=== PATIENT | female | born 1995 | race Caucasian/White ===

== ENCOUNTER 2017-01-30 16:06 | Inpatient (IN) | payer OTHER ==
[2017-01-30 16:54] LABS: URINE APPEARANCE CLEAR; URINE BILIRUBIN NEGATIVE (NEGATIVE); URINE BLOOD NEGATIVE (NEGATIVE); URINE COLOR YELLOW; URINE GLUCOSE (UA) NEGATIVE (NEGATIVE); URINE KETONE 1+ (NEGATIVE); URINE LEUK ESTERASE NEGATIVE (NEGATIVE); URINE NITRITE NEGATIVE (NEGATIVE); URINE PROTEIN NEGATIVE (NEGATIVE); URINE UROBILINOGEN NEGATIVE mg/dL (0.2-1.0)
[2017-01-30] MEDS ORDERED: SODIUM CHLORIDE 1,000 ML IV STA (17:00)
[2017-01-30] MEDS ORDERED: morphine CARPU-JECT 4 MG/1 ML DISP.SYRIN IVPUSH ONE (17:00)
--- NOTE | 2017-01-30 17:04 | PDOC ---
History of Present Illness - General History Source: Patient, Parent(s) Exam Limitations: No Limitations - History of Present Illness Initial Comments: 01/30/17 17:54 CC: 2 day h/o Abdominal Pain + 1 day h/o Fever Patient is a 21 y.o. female with no self-reported medical history who presents to our ED today c/o a 2 day h/o diffuse, lower quadrant, non-qualifiable ( patient affirms pain is sharp, stabbing) 10/10 abdominal pain. Patient notes an associated watery diarrhea and watery/bloody vaginal discharge. Patient states the pain came on acutely while she was sitting at work, and was initially 5/10 and has increased in severity over the past 48 hours. Patient also notes a 1 day history of fever for which she took Motrin with some relief. Patient denies any vomiting, chest pain, shortness of breath, recent travel or medication changes. PMD: Dr. Ratliff Social: (-) cigarettes, (+) alcohol 3-4 drinks weekly, (-) marijuana/cocaine/ heroin; patient was most recently sexually active 2 months previous and has not been tested for STI's since that time; LMP: 4 weeks previous NKDA <Elise Constantino - Last Filed: 01/30/17 19:10> <Howie Montes - Last Filed: 01/30/17 21:33> - General Chief Complaint: Pain Stated Complaint: FEVER/NAUSEA/ABD PAIN Time Seen by Provider: 01/30/17 16:27 Past History - Past Medical History Cancer: (rt lumpectomy) - Psycho/Social/Smoking Cessation Hx Suicidal Ideation: No Smoking History: Never smoked Information on smoking cessation initiated: No Hx Alcohol Use: No Drug/Substance Use Hx: No Substance Use Type: None <Elise Constantino - Last Filed: 01/30/17 19:10> <Howie Montes - Last Filed: 01/30/17 21:33> - Past Medical History Allergies/Adverse Reactions: Allergies Allergy/AdvReac Type Severity Reaction Status Date / Time No Known Allergies Allergy Verified 01/30/17 16:11 Home Medications: Ambulatory Orders Fluoxetine HCl [Prozac] 40 mg PO DAILY 01/30/17 Non-Formulary 0 mg PO ASDIR 01/30/17 Review of Systems - Review of Systems Constitutional: Yes: Fever, Loss of Appetite HEENTM: No: Blurred Vision, Double Vision Respiratory: No: Cough, Shortness of Breath Cardiac (ROS): No: Chest Pain, Edema, Lightheadedness, Palpitations ABD/GI: Yes: Diarrhea, Nausea, Poor Appetite : No: Burning, Dysuria Psychiatric: No: Anxiety, Depression All Other Systems: Reviewed and Negative <Elise Constantino - Last Filed: 01/30/17 19:10> *Physical Exam - Vital Signs Last Vital Signs Temp Pulse Resp BP Pulse Ox 102.3 F H 101 H 19 144/77 98 01/30/17 16:09 01/30/17 16:09 01/30/17 16:09 01/30/17 16:09 01/30/17 16:09 - Physical Exam General Appearance: Yes: Nourished, Appropriately Dressed HEENT: positive: EOMI, CONCHITA Neck: positive: Trachea midline, Supple Respiratory/Chest: positive: Lungs Clear, Normal Breath Sounds Cardiovascular: positive: S1, S2, Tachycardia Female Pelvic Exam: positive: cervical os closed, discharge, other (significant cervical motion tenderness; whitish discharge, no strawberry cervix, no active bleed) Gastrointestinal/Abdominal: positive: Tender, Increased Bowel Sounds, Tenderness , Other ((+) peritoneal signs; diffuse TTP with significant tenderness in periumbilical area) Musculoskeletal: positive: Normal Inspection. negative: CVA Tenderness Extremity: positive: Delayed Capillary Refill Integumentary: positive: Normal Color, Dry, Warm Neurologic: positive: senior writer II-XII NML intact, Fully Oriented, Alert <DougieElise - Last Filed: 01/30/17 19:10> - Vital Signs Last Vital Signs Temp Pulse Resp BP Pulse Ox 100.4 F H 101 H 19 144/77 98 01/30/17 20:28 01/30/17 16:09 01/30/17 16:09 01/30/17 16:09 01/30/17 16:09 <Howie Montes - Last Filed: 01/30/17 21:33> ED Treatment Course - LABORATORY CBC & Chemistry Diagram: 01/30/17 17:00 01/30/17 17:00 - ADDITIONAL ORDERS Additional order review: Laboratory Results 01/30/17 16:33 Urine Color Yellow Urine Appearance Clear Urine pH 6.0 Urine Protein Negative Urine Glucose (UA) Negative Urine Ketones 1+ H Urine Blood Negative Urine Nitrite Negative Urine Bilirubin Negative Urine Urobilinogen Negative Ur Leukocyte Esterase Negative Urine HCG, Qual Negative - RADIOLOGY Radiology Studies Ordered: Category Date Time Status ABDOMEN & PELVIS CT WITH CONTR [CT] Stat CT Scan 01/30/17 16:53 Ordered <Elise Constantino - Last Filed: 01/30/17 19:10> - LABORATORY CBC & Chemistry Diagram: 01/30/17 17:00 01/30/17 17:00 - ADDITIONAL ORDERS Additional order review: Laboratory Results 01/30/17 01/30/17 01/30/17 17:00 17:00 16:33 Sodium 135 L Potassium 3.8 Chloride 99 Carbon Dioxide 24 Anion Gap 12 BUN 9 Creatinine 0.8 Creat Clearance w eGFR > 60 Random Glucose 93 Calcium 9.2 Total Bilirubin 0.5 AST 23 ALT 20 Alkaline Phosphatase 89 Total Protein 7.7 Albumin 3.9 Lipase 189 Urine Color Yellow Urine Appearance Clear Urine pH 6.0 Ur Specific Rousseau 1.015 Urine Protein Negative Urine Glucose (UA) Negative Urine Ketones 1+ H Urine Blood Negative Urine Nitrite Negative Urine Bilirubin Negative Urine Urobilinogen Negative Ur Leukocyte Esterase Negative Urine HCG, Qual Negative 01/30/17 17:00 RBC 4.70 MCV 80.9 MCHC 34.3 RDW 13.9 MPV 7.7 Neutrophils % 82.4 Lymphocytes % 10.0 Monocytes % 7.4 Eosinophils % 0.0 Basophils % 0.2 - Medications Given in the ED: ED Medications Discontinued Medications Generic Name Dose Route Start Last Admin Trade Name Freq PRN Reason Stop Dose Admin Sodium Chloride 1,000 mls @ 1,000 mls/hr 01/30/17 17:00 01/30/17 17:20 Normal Saline - IV 01/30/17 17:59 1,000 mls/hr ASDIR STA Administration Morphine Sulfate 4 mg 01/30/17 17:00 01/30/17 17:20 Morphine Injection - IVPUSH 01/30/17 17:01 4 mg ONCE ONE Administration Morphine Sulfate 2 mg 01/30/17 19:39 01/30/17 20:05 Morphine Injection - IVPUSH 01/30/17 19:40 2 mg ONCE ONE Administration <Howie Montes - Last Filed: 01/30/17 21:33> Medical Decision Making - Medical Decision Making 01/30/17 17:04 Patient is a 21 y.o. female with no reported PMH who presents to our facility today c/o 2 day h/o of abdominal pain and 1 day h/o fever. On PE patient is febrile (102.3 degrees Fahrenheit), slightly tachycardic (101) and shows significant tenderness to palpation of all 4 abdominal quadrants as well as significant cervical motion tenderness on pelvic exam. Initial differential diagnosis includes PID vs. Acute Appendicitis vs. Pancreatitis vs.Viral Gastroenteritis. PLAN: 1. CT Abdomen w/ PO & IV Contrast 2. Pelvic Exam 3. Transvaginal U/S 4. Lipase, CMP, CBC 5. UA, Urine , G/C/T 01/30/17 18:48 Urine (-), UA shows 1+ Ketones, Imaging, Transvaginal U/S pending. Patient signed out to Dr. Montes. <Elise Constantino - Last Filed: 01/30/17 19:10> *DC/Admit/Observation/Transfer <Elise Constantino - Last Filed: 01/30/17 19:10> - Discharge Dispostion Admit: Yes <Howie Montes - Last Filed: 01/30/17 21:33> Diagnosis at time of Disposition: Colitis Fever Qualifiers: Fever type: unspecified Qualified Code(s): R50.9 - Fever, unspecified - Discharge Dispostion Condition at time of disposition: Fair - Referrals Referrals: Peri Ratliff MD [Primary Care Provider] -
[2017-01-30 17:14] LABS: BASOPHIL 0.2 % (0-2.0); MCH 27.7 pg (25.7-33.7); MCHC 34.3 g/dl (32.0-36.0); MEAN CELL VOLUME 80.9 fl (80-96); MEAN PLT VOLUME 7.7 fl (7.5-11.1); NEUTROPHILS 82.4 % (42.8-82.8); PLATELET COUNT 197 K/MM3 (134-434); RDW 13.9 % (11.6-15.6); WHITE BLOOD COUNT 6.1 K/mm3 (4.0-10.0)
[2017-01-30] MEDS ORDERED: morphine CARPU-JECT 4 MG/1 ML DISP.SYRIN ONE (17:28)
[2017-01-30 17:35] LABS: ALBUMIN 3.9 g/dl (3.4-5.0); ANION GAP 12 (8-16); BILIRUBIN,TOTAL 0.5 mg/dL (0.2-1.0); CALCIUM 9.2 mg/dL (8.5-10.1); CO2 24 mmol/L (21-32); CREATININE 0.8 mg/dL (0.55-1.02); GLUCOSE,RANDOM 93 mg/dL (74-106); SGOT/AST 23 U/L (15-37); SGPT/ALT 20 U/L (12-78); TOT PROT 7.7 g/dl (6.4-8.2)
[2017-01-30 17:36] LABS: ALK PHOS 89 U/L (45-117)
--- NOTE | 2017-01-30 19:35 | PDOC ---
Attending Attestation - Resident Resident Name: Elise Constantino - HPI HPI: 01/30/17 19:33 21-year-old female presents to the ER with diffuse lower abdominal pain and fever, associated with nausea, nonbloody nonbilious vomiting and the minimal loose watery stools. - Physicial Exam PE: 01/30/17 19:34 Patient is awake and alert, pale appearing, mildly tachycardic and febrile. There is no scleral icterus; lungs are clear to auscultation; serial abdominal exams reveal focal tenderness diffusely most pronounced in left lower quadrant and periumbilically; there is no guarding or rebound. There is no CVA tenderness bilaterally. - Medical Decision Making 01/30/17 19:34 Patient is a 21-year-old female who presents with fever, nausea, vomiting and diffuse abdominal pain. Differential diagnoses includes acute gastritis versus acute appendicitis versus colitis versus PID. Will obtain transvaginal ultrasound and CT that and pelvis with by mouth and IV contrast. We'll obtain CBC/CMP/UA/ECG. Will hydrate and administer pain meds. Will reassess. 01/30/17 21:[address] demonstrates pancolitis. I suspect IBD. We'll obtain stool culture. We'll outboard system operator Levaquin and Flagyl IV. Case discussed with Dr. mason of GI. Will admit.
[2017-01-30] MEDS ORDERED: morphine CARPU-JECT 2 MG/1 ML DISP.SYRIN IVPUSH ONE (19:39)
[2017-01-30] MEDS ORDERED: morphine CARPU-JECT 2 MG/1 ML DISP.SYRIN ONE (20:05)
[2017-01-30] MEDS ORDERED: LEVOFLOXACIN 500 MG IVPB 100 ML IVPB ONE ×3 (20:56→22:33)
[2017-01-30] MEDS ORDERED: METRONIDAZOLE 500 MG PREMIXED 100 ML IVPB ONE ×2 (20:56→21:25)
--- NOTE | 2017-01-30 22:05 | PN ---
Teaching Attending Note Name of Resident: Dileep Marino ATTENDING PHYSICIAN STATEMENT I saw and evaluated the patient. I reviewed the resident's note and discussed the case with the resident. I agree with the resident's findings and plan as documented. SUBJECTIVE: This is a 21 year old woman with no significant medical history who comes to the ER today complaining of abdominal pain. She says she developed lower abdominal cramping on 01/26. Since then, he pain has become more severe. She has had worsening watery diarrhea, nausea and fevers to 102. She denies rectal bleeding, melena, hematemesis, weight loss. She has had similar, but less severe, abdominal pain, which she attributed to IBS, for the last 4 years. She was hospitalized last year for abdominal pain at which time she had CT showing abnormalities of the GI tract. It was recommended that she have a colonoscopy but she did not go. She also complains of pain in both shoulders which she was told is bursitis, and pain in both knees. She denies back pain, rash. OBJECTIVE: Vital Signs Period Temp Pulse Resp BP Sys/Carlos Pulse Ox Last 24 Hr 100.4 F-102.3 F 101 19 144/77 98 HEART: S1S2, tachycardic LUNGS: Clear ABDOMEN: Soft, non-distended, normal BS, (+) LLQ tenderness EXTREMITIES: No edema ASSESSMENT AND PLAN: This is a 21 year old woman with no significant medical history who presents to the ER with abdominal pain, nausea, diarrhea and fever. 1. SIRS, possible sepsis, secondary to acute colitis - Infectious vs inflammatory - CT shows continuous concentric wall thickening from splenic flexure through rectum with probable transverse colon involvement, increased intraluminal colonic fluid - NPO - Stool studies - IV fluid - Levaquin, Flagyl - Zofran as needed for nausea - Morphine as needed for pain - GI consult
[2017-01-30] MEDS ORDERED: ONDANSETRON 4 MG/2 ML VIAL IVPB PRN (22:20)
[2017-01-30] MEDS ORDERED: LEVOFLOXACIN 500 MG IVPB 100 ML IVPB SCH (22:45)
[2017-01-30] MEDS: SODIUM CHLORIDE 1,000 ML IV SCH (23:30)
[2017-01-31] MEDS: SODIUM CHLORIDE 1,000 ML IV SCH ×3 (01:30→23:48)
[2017-01-31] MEDS: morphine CARPU-JECT 2 MG/1 ML DISP.SYRIN IVPUSH PRN ×3 (01:37→11:06)
[2017-01-31] MEDS: METRONIDAZOLE PREMIXED IVPB 50 ML IVPB SCH ×3 (02:28→17:42)
[2017-01-31] MEDS ORDERED: ACETAMINOPHEN 325 MG TABLET (FP) PO PRN (02:58)
--- NOTE | 2017-01-31 03:01 | HP ---
CHIEF COMPLAINT: Abdominal pain PCP: HISTORY OF PRESENT ILLNESS: The patient is a 21 yo f w/ no PMH who presents to the ED c/o abdominal pain, nausea, vomiting and diarrhea for 2 days. The patient states that she has had pain in her abdomen on and off with and without diarrhea and vomiting for the past 5 years and is now having a similar episode. The patient complains of a cramping, 7/10 pain over the whole abdomen which radiates to the epigastrium which alternates with a sharp, 10/10 abdominal pain. The pain is exacerbated by sitting up and alleviated by laying on her side. The pain is associated with NBNB emesis which occurs when she eats something or sits up in bed. She also complains of several episodes of watery diarrhea. The patient's symptoms began to be associated with fever to 102 and chills 1 day ago. The patient also complains of bilateral shoulder and knee pain which she was told is bursitis. The patient was previously hospitalized with abdominal pain and had a CT of the abdomen which showed abnormalities of the GI tract. 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 Social History: Smoking: denies Alcohol: denies Drugs: denies Family History: crohn's in cousin celiac in cousin GI problems in father Allergies No Known Allergies Allergy (Verified 01/30/17 16:11) HOME MEDICATIONS: Home Medications Medication Instructions Recorded Fluoxetine HCl [Prozac] 40 mg PO DAILY 01/30/17 Non-Formulary 0 mg PO ASDIR 01/30/17 REVIEW OF SYSTEMS CONSTITUTIONAL: Absent: fever, diaphoresis, generalized weakness, malaise, loss of appetite, weight change HEENT: Absent: rhinorrhea, nasal congestion, throat pain, throat swelling, difficulty swallowing, mouth swelling, ear pain, eye pain, visual changes CARDIOVASCULAR: Absent: chest pain, syncope, palpitations, irregular heart rate, lightheadedness , peripheral edema RESPIRATORY: Absent: cough, shortness of breath, dyspnea with exertion, orthopnea, wheezing, stridor, hemoptysis GASTROINTESTINAL: Absent: melena, hematochezia GENITOURINARY: Absent: dysuria, frequency, urgency, hesitancy, hematuria, flank pain, genital pain MUSCULOSKELETAL: Absent: myalgia, joint swelling, back pain, neck pain SKIN: Absent: rash, itching, pallor HEMATOLOGIC/IMMUNOLOGIC: Absent: easy bleeding, easy bruising, lymphadenopathy, frequent infections ENDOCRINE: Absent: unexplained weight gain, unexplained weight loss, heat intolerance, cold intolerance NEUROLOGIC: Absent: headache, focal weakness or paresthesias, dizziness, unsteady gait, seizure, mental status changes, bladder or bowel incontinence PSYCHIATRIC: Absent: anxiety, depression, suicidal or homicidal ideation, hallucinations. PHYSICAL EXAMINATION GENERAL: Awake, alert, and fully oriented, in no acute distress. HEAD: Normal with no signs of trauma. EYES: extraocular movements intact, sclera anicteric, conjunctiva clear. No lid lag. NECK: Normal range of motion, no JVD. LUNGS: Breath sounds equal, clear to auscultation bilaterally. No wheezes, and no crackles. No accessory muscle use. HEART: Regular rate and rhythm, normal S1 and S2 without murmur, rub or gallop. ABDOMEN: Soft, tender to palpation in the lower quadrants, not distended, normoactive bowel sounds, no guarding, no rebound, no masses. MUSCULOSKELETAL: Normal range of motion at all joints. No bony deformities or tenderness. No CVA tenderness. NEUROLOGICAL: Cranial nerves II-X intact. Normal speech. Gait not observed. PSYCHIATRIC: Cooperative. Good eye contact. Appropriate mood and affect. SKIN: Warm, dry, normal turgor, no rashes or lesions noted, normal capillary refill. ASSESSMENT/PLAN: 21yo f w/ no PMH comes to the ED complaining of abdominal pain, nausea, vomiting , diarrhea, fever, chills and joint pain. #Abdominal pain 2/2 Colitis 2/2 IBD vs infectious cause -levaquin and flagyl -IVF -Morphine PRN pain -am CBC, CMP, Mag, phos -tylenol prn fever -GI consult #nausea and vomiting -Zofran prn -IVF #diarrhea -monitor -IVF #FEN -NS @ 100 -monitor lytes -NPO #Prophy -SCDs -no GI prophy at this time #Dispo -admitted for supportive therapy and Problem List - Problem (1) Colitis Code(s): K52.9 - NONINFECTIVE GASTROENTERITIS AND COLITIS, UNSPECIFIED (2) Fever Code(s): R50.9 - FEVER, UNSPECIFIED Qualifiers: Fever type: unspecified Qualified Code(s): R50.9 - Fever, unspecified (3) Abdominal pain Code(s): R10.9 - UNSPECIFIED ABDOMINAL PAIN Visit type - Emergency Visit Emergency Visit: Yes ED Registration Date: 01/30/17 Care time: The patient presented to the Emergency Department on the above date and was hospitalized for further evaluation of their emergent condition. - New Patient This patient is new to me today: Yes Date on this admission: 01/31/17 - Critical Care Critical Care patient: No
[2017-01-31 03:35] VITALS: BMI 23.3
[2017-01-31 08:09] LABS: BASOPHIL 0.3 % (0-2.0); MCH 27.6 pg (25.7-33.7); MCHC 34.4 g/dl (32.0-36.0); MEAN CELL VOLUME 80.3 fl (80-96); MEAN PLT VOLUME 7.9 fl (7.5-11.1); NEUTROPHILS 73.1 % (42.8-82.8); PLATELET COUNT 167 K/MM3 (134-434); RDW 14.1 % (11.6-15.6); WHITE BLOOD COUNT 4.9 K/mm3 (4.0-10.0)
[2017-01-31 08:44] LABS: ALK PHOS 67 U/L (45-117); ANION GAP 16 (8-16); BILIRUBIN,TOTAL 0.6 mg/dL (0.2-1.0); CALCIUM 8.1 mg/dL (8.5-10.1); CO2 18 mmol/L (21-32); CREATININE 0.5 mg/dL (0.55-1.02); GLUCOSE,RANDOM 68 mg/dL (74-106); MAGNESIUM 2.1 mg/dL (1.8-2.4); PHOSPHOROUS 2.5 mg/dL (2.5-4.9); SGOT/AST 20 U/L (15-37); SGPT/ALT 16 U/L (12-78); TOT PROT 6.1 g/dl (6.4-8.2)
[2017-01-31 09:02] LABS: C-REACTIVE PROTEIN 17.1 MG/DL (0.00-0.3)
[2017-01-31] MEDS ORDERED: PT OWN MED DRAWER 7, Y5N ONE ×2 (09:39→17:39)
[2017-01-31] MEDS: FLUoxetine HCL 20 MG CAPSULE (FP) PO SCH (11:07)
[2017-01-31] MEDS: LEVOFLOXACIN 500 MG IVPB 100 ML IVPB SCH (11:07)
--- NOTE | 2017-01-31 11:29 | PN ---
Progress Note (short form) - Note Progress Note: continues to have abdominal pain, improved with pain medications. continues to have bloody BM, 3 since admission. states she had similar episode this time last year and was hospitalized in [place]. unclear what was done at that time but believes she was not given abx during that course. was instructed to follow up with a GI for colonoscopy which she never did. does report intermittent B/L shoulder and knee pain for several years. was recently on 10 day abx course for finger surgery which she completed about 2 weeks ago. states her usual BM are daily, denies CP, SOB, fever, chills, tenesmus, rashes, uveitis in the past. no recent travel, no sick contacts Current Medications Generic Name Dose Route Start Last Admin Trade Name Freq PRN Reason Stop Dose Admin Acetaminophen 650 mg 01/31/17 02:58 Tylenol - PO Q6H PRN FEVER OR PAIN Fluoxetine HCl 40 mg 01/31/17 10:00 Prozac - PO DAILY GINI Sodium Chloride 1,000 mls @ 100 mls/hr 01/30/17 22:30 01/31/17 01:30 Normal Saline - IV 100 mls/hr ASDIR GINI Administration Metronidazole 50 mls @ 50 mls/hr 01/31/17 02:00 01/31/17 09:44 Flagyl 250mg Premixed Ivpb - IVPB 50 mls/hr Q8H-IV GINI Administration Levofloxacin 100 mls @ 100 mls/hr 01/31/17 10:00 Levaquin 500 Mg Premixed Ivpb - IVPB DAILY GINI Morphine Sulfate 2 mg 01/30/17 22:20 01/31/17 06:29 Morphine Injection - IVPUSH 2 mg Q4H PRN Administration PAIN Ondansetron HCl 4 mg 01/30/17 22:20 Zofran Injection IVPB Q6H PRN NAUSEA Last Vital Signs Temp Pulse Resp BP Pulse Ox 98.5 F 83 18 116/53 99 01/31/17 09:18 01/31/17 09:18 01/31/17 09:18 01/31/17 09:18 01/31/17 01:21 General NAD, flat affect CV S1 S2 RRR no murmur/rub/gallop LUngs CTA B/L no wheezing/rales/rhonchi Abdomen soft + epigastric and LLQ tenderness with guarding no rebound no distention. normoactive BS Extremities no pedal edema no rashes. hypopigmented lesion L upper thigh CBCD WBC 4.9 K/mm3 (4.0-10.0) 01/31/17 06:00 RBC 4.20 M/mm3 (3.60-5.2) 01/31/17 06:00 Hgb 11.6 GM/dL (10.7-15.3) D 01/31/17 06:00 Hct 33.7 % (32.4-45.2) 01/31/17 06:00 MCV 80.3 fl (80-96) 01/31/17 06:00 MCHC 34.4 g/dl (32.0-36.0) 01/31/17 06:00 RDW 14.1 % (11.6-15.6) 01/31/17 06:00 Plt Count 167 K/MM3 (134-434) 01/31/17 06:00 MPV 7.9 fl (7.5-11.1) 01/31/17 06:00 CMP Sodium 137 mmol/L (136-145) 01/31/17 06:00 Potassium 3.4 mmol/L (3.5-5.1) L 01/31/17 06:00 Chloride 103 mmol/L (98-107) 01/31/17 06:00 Carbon Dioxide 18 mmol/L (21-32) L D 01/31/17 06:00 Anion Gap 16 (8-16) 01/31/17 06:00 BUN 6 mg/dL (7-18) L D 01/31/17 06:00 Creatinine 0.5 mg/dL (0.55-1.02) L D 01/31/17 06:00 Creat Clearance w eGFR > 60 (>60) 01/31/17 06:00 Random Glucose 68 mg/dL (74-106) L D 01/31/17 06:00 Calcium 8.1 mg/dL (8.5-10.1) L 01/31/17 06:00 Total Bilirubin 0.6 mg/dL (0.2-1.0) 01/31/17 06:00 AST 20 U/L (15-37) 01/31/17 06:00 ALT 16 U/L (12-78) 01/31/17 06:00 Alkaline Phosphatase 67 U/L (45-117) D 01/31/17 06:00 Total Protein 6.1 g/dl (6.4-8.2) L D 01/31/17 06:00 Albumin 3.0 g/dl (3.4-5.0) L D 01/31/17 06:00 A/p 21 yo F with no PMHx presented to the hospital with abdominal pain, fevers and bloody diarrhea 1. Sepsis due to pancolitis- Tm 102.3. tachycardia resolved. clinically continues to have abdominal pain and self-reported bloody BM. concern for IBD ( presenting symptoms with zavala-colitis with arthalgias and significant family Hx although duration is short) although can not r/o infectious etiology. cont NPO at this time. IVF, Levaquin and Flagyl day 2. ESR/CRP pending. Stool and BCx pending. GI consulted. will defer to GI about empirically starting steroids and 5-ASA. pain and nausea control. 2. Hypokalemia- KCl 10meq x2 3. DVT ppx- will start lovenox 4. spoke with mother and sister both present at bedside. plan discussed at great length. verbalized understanding and agreement with plan Visit type - Emergency Visit Emergency Visit: Yes ED Registration Date: 01/30/17 Care time: The patient presented to the Emergency Department on the above date and was hospitalized for further evaluation of their emergent condition. - New Patient This patient is new to me today: Yes Date on this admission: 01/31/17 - Critical Care Critical Care patient: No - Discharge Referral Referred to [facility] No
[2017-01-31] MEDS: KCL 10 MEQ IVPB 100 ML IVPB SCH ×2 (11:53→13:19)
[2017-01-31] MEDS ORDERED: ACETAMINOPHEN 1000 MG/100 ML VIAL (NON FORMULARY) IVPB ONE (13:15)
[2017-01-31] MEDS ORDERED: oxyCODONE HCL 5 MG TABLET PO PRN (15:40)
[2017-01-31] MEDS ORDERED: ACETAMINOPHEN 1000 MG/100 ML VIAL (NON FORMULARY) IVPB PRN (15:47)
--- NOTE | 2017-01-31 17:18 | CON.GI ---
Consult Consult Specialty:: GASTROENTEROLOGY FOR ROBBIN - History of Present Illness Chief Complaint: FEVER AND DIARRHEA History of Present Illness: 21 YEAR OLD FEMALE WITH EPISODES OF LOOSE STOOL WITH SOME BLEEDING (SCANT AND PINK) THAT STARTED ON THURSDAY AND STEADILY PROGRESSED AND ASSOCIATED WITH SYMPTOMS OF ABDOMINAL CRAMPING AND SOME TENESMUS. SHE HAD DOCUMENTED FEVER TO 102. SHE HAD ASSOCIATED ANOREXIA AND MALAISE. SHE HAD A SIMILAR EPISODE OF THIS A COUPLE OF MONTHS AGO IN [place]. HER STOOLS GREW OUT A HEAVY COLONY COUNT OF CAMPHYLOBACTER. SHE WAS NEVER TREATED WITH ANTIBIOTIC SHE WAS CALLED BY THE HOSPITAL WHILE SHE WAS HOME AND HER SYMPTOMS RESOLVED. SHE WAS TOLD TO SEE A FLOOR BROKER BUT SHE NEVER DID SHE WAS FEELING BETTER. OF NOTE SHE HAS SOME INTERMITTENT BILATERAL SHOULDER PAIN THAT WAS DIAGNOSED BURSITIS. SHE HAS HAD MILD BILATERAL KNEE PAIN. SHE WAS ON A COURSE OF ANTIBIOTICS IN NOVEMBER FOR A FINGER INFECTION AFTER REMOVAL OF AN AVM FROM HER RIGHT HAND. SHE HAS NEVER HAD UVEITIS IT STATES IN THE CHART. SHE DENIES RECENT TRAVEL, SICK CONTACTS OR EATING UNCOOKED OR "STREET' FOOD. HER COUSIN HAS CROHN'S DISEASE , HER MOTHER HAS POLYPS AND OTHER RELATIVES HAVE HAD MULTIPLE MYELOMA, PANCREATIC CANCER, AND PROSTATE CANCER. 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: Alzheimer's, CVA, Dementia, Migraine, Multiple Sclerosis, Peripheral Neuropathy, Parkinson's, Seizure, Syncope, TIA, Vertigo, Other Cardio/Vascular: No: AFIB, Aneurysm, Aortic Insufficiency, Aortic Stenosis, CAD , CHF, Deep Vein Thrombosis, HTN, Hyperlipdemia, OK, Mitral Insufficiency, Mitral Stenosis, Murmur, Pulmonary Hypertension, Other Pulmonary: No: Asthma, Bronchitis, Cancer, COPD, O2 Dependent, Pneumonia, Previously Intubated, Pulmonary Embolus, Pulmonary Fibrosis, Sleep Apnea, Other Gastrointestinal: Yes: Other ( ABOVE) Hepatobiliary: No: Cirrhosis, Cholelithiasis, Cholecystitis, Choledocholithiasis , Hepatitis A, Hepatitis B, Hepatitis C, Other Renal/: No: Renal Failure, Renal Inusuff, BPH, Cancer, Hematuria, Hemodialysis , Neurogenic Bladder, Renal Calculi, UTI, Other Reproductive: No: Ectopic , Endometriosis, Fibroids, PID, Polycystic Ovary Syndrome, Postmenopausal, Other ...: No Infectious Disease: Yes: Other ( ABOVE) Musculoskeletal: Yes: Bursitis, Other ( ABOVE, AVM RIGHT HAND) ENT: No: Allergic Rhinitis, Sinusitis, Other Endocrine: No: [place]'s Disease, Ioana's Disease, Diabetes Insipidus, Diabetes Mellitus, Hyperparathyroidism, Hyperthyroidism, Hypothyroidism, Osteopenia, SIADH, Other - Past Surgical History Additional Surgical History: LUPECTOMY FOR BENIGN BREAST LESION - Alcohol/Substance Use Hx Alcohol Use: No - Smoking History Smoking history: Never smoked Home Medications - Allergies Allergies/Adverse Reactions: Allergies Allergy/AdvReac Type Severity Reaction Status Date / Time No Known Allergies Allergy Verified 01/30/17 16:11 - Home Medications Home Medications: Ambulatory Orders Fluoxetine HCl [Prozac] 40 mg PO DAILY 01/30/17 Non-Formulary 0 mg PO ASDIR 01/30/17 Family Disease History - Family Disease History Family History: Unremarkable ( HPI) Review of Systems - Review of Systems Constitutional: reports: Chills, Fever, Loss of Appetite, Weakness Eyes: reports: No Symptoms HENT: reports: No Symptoms Neck: reports: No Symptoms Cardiovascular: reports: No Symptoms Respiratory: reports: No Symptoms Gastrointestinal: reports: Abdominal Pain, Diarrhea, Rectal Bleeding Genitourinary: denies: No Symptoms, Burning, Discharge, Dysuria, Flank Pain, Frequency, Hematuria, Incontinence, Lesions, Menses, Pain, Testicular Mass, Testicular Pain, Testicular Swelling, Urgency, Vaginal Bleeding, Other Breasts: denies: No Symptoms Reported, See HPI, Breast Implants, Discharge from Nipple, Lumps, Pain, Skin Changes, Other Musculoskeletal: denies: No Symptoms, Back Pain, Crepitus, Decreased ROM, Extremity Pain, Joint Pain, Joint Swelling, Muscle Pain, Muscle Cramps, Muscle Weakness, Other Integumentary: denies: No Symptoms, Blister, Bruising, Change in Color, Eczema, Erythema, Incision, Lesions, Lump, Pallor, Pruritis, Rash, Wound, Other Neurological: denies: No Symptoms, Change in LOC, Change in Speech, Confusion, Dizziness, Headache, Incoordination, Numbness, Parasthesia, Pre-Existing Deficit , Seizure, Syncope, Tremors, Unsteady Gait, Weakness, Other Endocrine: denies: No Symptoms, Excessive Sweating, Flushing, Increased Hunger, Increased Thirst, Intolerance to Cold, Intolerance to Heat, Unexplained Weight Gain, Unexplained Weight Loss, Other Hematology/Lymphatic: denies: No Symptoms, Easily Bruised, Excessive Bleeding, Swollen Glands, Other Physical Exam-GI Vital Signs: Vital Signs Temperature 98.3 F 01/31/17 14:59 Pulse Rate 76 01/31/17 14:59 Respiratory Rate 18 01/31/17 14:59 Blood Pressure 109/65 01/31/17 14:59 O2 Sat by Pulse Oximetry (%) 100 01/31/17 09:00 Constitutional: Yes: Well Nourished, No Distress Eyes: Yes: Conjunctiva Clear HENT: Yes: Atraumatic Neck: Yes: Supple Cardiovascular: Yes: Regular Rate and Rhythm Respiratory: Yes: Regular Gastrointestinal Inspection: Yes: WNL ...Auscultate: Yes: Normoactive Bowel Sounds ...Palpate: Yes: Soft, Other (NONTENDER) Extremities: Yes: WNL Labs: CBC, BMP 01/31/17 06:00 01/31/17 06:00 Imaging - Results Cat Scan: Image Reviewed (COLITIS IN THE LEFT COLON AND SIGMOID, MILDY DILATED SIGMOID) Problem List - Problems (1) Bloody diarrhea Assessment/Plan: ALL CULTURES WERE SENT INCLUDING C DIFFICLE AND ALL RESULTS ARE STILL PENDING. THE QUESTION IS ONE OF INFECTION VS IBD. WILL WAIT FOR CULTURES . ADVANCE DIET TO CLEARS, STOP MORPHINE AND START BENTYL PRN, ADD IV ACETAMINOPHEN AND USE OXYCODONE PRN. IF CULTURES ARE POSITIVE FOR BACTERIA CONTINUE BAX AND IF SHE IMPROVES OUTPATIENT FOLLOW UP. IF CULTURES NEGATIVE CONSIDER COLONOSCOPY OR FLEX SIGMOIDOSCOPY ON THURSDAY TREND CBC, CMP, CRP. Code(s): R19.7 - DIARRHEA, UNSPECIFIED (2) Colitis Code(s): K52.9 - NONINFECTIVE GASTROENTERITIS AND COLITIS, UNSPECIFIED (3) Fever Code(s): R50.9 - FEVER, UNSPECIFIED Qualifiers: Fever type: unspecified Qualified Code(s): R50.9 - Fever, unspecified (4) Abdominal pain Code(s): R10.9 - UNSPECIFIED ABDOMINAL PAIN
[2017-01-31] MEDS: DICYCLOMINE HCL 10 MG CAPSULE PO PRN (17:42)
[2017-02-01] MEDS: DICYCLOMINE HCL 10 MG CAPSULE PO PRN ×2 (00:43→12:45)
[2017-02-01] MEDS: METRONIDAZOLE PREMIXED IVPB 50 ML IVPB SCH ×3 (02:31→17:37)
[2017-02-01 07:15] LABS: BASOPHIL 0.3 % (0-2.0); EOSINOPHIL 0.2 % (0-4.5); MCH 27.6 pg (25.7-33.7); MEAN CELL VOLUME 81.1 fl (80-96); MEAN PLT VOLUME 7.5 fl (7.5-11.1); NEUTROPHILS 70.3 % (42.8-82.8); PLATELET COUNT 174 K/MM3 (134-434); RDW 14.2 % (11.6-15.6); WHITE BLOOD COUNT 5.7 K/mm3 (4.0-10.0)
[2017-02-01 07:43] LABS: ALBUMIN 2.8 g/dl (3.4-5.0); ANION GAP 14 (8-16); CALCIUM 8.1 mg/dL (8.5-10.1); CO2 16 mmol/L (21-32); CREATININE 0.5 mg/dL (0.55-1.02); GLUCOSE,RANDOM 58 mg/dL (74-106); MAGNESIUM 1.9 mg/dL (1.8-2.4); PHOSPHOROUS 1.8 mg/dL (2.5-4.9); SGOT/AST 20 U/L (15-37); SGPT/ALT 16 U/L (12-78)
[2017-02-01 07:45] LABS: ALK PHOS 66 U/L (45-117); BILIRUBIN,TOTAL 0.5 mg/dL (0.2-1.0); TOT PROT 5.8 g/dl (6.4-8.2)
[2017-02-01] MEDS ORDERED: PT OWN MED DRAWER 7, Y5N ONE ×3 (10:01→16:56)
[2017-02-01] MEDS: LEVOFLOXACIN 500 MG IVPB 100 ML IVPB SCH (10:08)
[2017-02-01] MEDS: FLUoxetine HCL 20 MG CAPSULE (FP) PO SCH (10:08)
--- NOTE | 2017-02-01 12:02 | PN ---
Progress Note (short form) - Note Progress Note: states pain has improved. tolerating liquid diet. no BM since yesterday. denies CP, SOB, fever, chills, tenesmus, rashes, uveitis in the past. no recent travel , no sick contacts Current Medications Generic Name Dose Route Start Last Admin Trade Name Freq PRN Reason Stop Dose Admin Dicyclomine HCl 10 mg 01/31/17 15:39 02/01/17 00:43 Bentyl - PO 10 mg Q8H PRN Administration MUSCLE SPASMS Fluoxetine HCl 40 mg 01/31/17 10:00 02/01/17 10:08 Prozac - PO 40 mg DAILY GINI Administration Sodium Chloride 1,000 mls @ 100 mls/hr 01/30/17 22:30 01/31/17 23:48 Normal Saline - IV Not Given ASDIR GINI Metronidazole 50 mls @ 50 mls/hr 01/31/17 02:00 02/01/17 11:25 Flagyl 250mg Premixed Ivpb - IVPB 50 mls/hr Q8H-IV GINI Administration Levofloxacin 100 mls @ 100 mls/hr 01/31/17 10:00 02/01/17 10:08 Levaquin 500 Mg Premixed Ivpb - IVPB 100 mls/hr DAILY GINI Administration Ondansetron HCl 4 mg 01/30/17 22:20 Zofran Injection IVPB Q6H PRN NAUSEA Oxycodone HCl 5 mg 01/31/17 15:40 Roxicodone - PO Q6H PRN PAIN Last Vital Signs Temp Pulse Resp BP Pulse Ox 98.3 F 79 20 103/52 98 02/01/17 10:00 02/01/17 10:00 02/01/17 10:00 02/01/17 10:00 02/01/17 09:00 General NAD, CV S1 S2 RRR no murmur/rub/gallop LUngs CTA B/L no wheezing/rales/rhonchi Abdomen soft + epigastric and LLQ tenderness with guarding no rebound no distention. hypoactive BS Extremities no pedal edema no rashes. CBCD WBC 5.7 K/mm3 (4.0-10.0) 02/01/17 06:15 RBC 3.95 M/mm3 (3.60-5.2) 02/01/17 06:15 Hgb 10.9 GM/dL (10.7-15.3) 02/01/17 06:15 Hct 32.0 % (32.4-45.2) L 02/01/17 06:15 MCV 81.1 fl (80-96) 02/01/17 06:15 MCHC 34.0 g/dl (32.0-36.0) 02/01/17 06:15 RDW 14.2 % (11.6-15.6) 02/01/17 06:15 Plt Count 174 K/MM3 (134-434) 02/01/17 06:15 MPV 7.5 fl (7.5-11.1) 02/01/17 06:15 CMP Sodium 138 mmol/L (136-145) 02/01/17 06:15 Potassium 3.7 mmol/L (3.5-5.1) 02/01/17 06:15 Chloride 108 mmol/L (98-107) H 02/01/17 06:15 Carbon Dioxide 16 mmol/L (21-32) L 02/01/17 06:15 Anion Gap 14 (8-16) 02/01/17 06:15 BUN 6 mg/dL (7-18) L 02/01/17 06:15 Creatinine 0.5 mg/dL (0.55-1.02) L 02/01/17 06:15 Creat Clearance w eGFR > 60 (>60) 02/01/17 06:15 Calcium 8.1 mg/dL (8.5-10.1) L 02/01/17 06:15 Total Bilirubin 0.5 mg/dL (0.2-1.0) 02/01/17 06:15 AST 20 U/L (15-37) 02/01/17 06:15 ALT 16 U/L (12-78) 02/01/17 06:15 Alkaline Phosphatase 66 U/L (45-117) 02/01/17 06:15 Total Protein 5.8 g/dl (6.4-8.2) L 02/01/17 06:15 Albumin 2.8 g/dl (3.4-5.0) L 02/01/17 06:15 Microbiology 01/31/17 00:37 Colon Fluid Gram Stain - Final 01/31/17 00:37 Colon Fluid Salmonella/Shigella Culture - Preliminary Pending Organism 01/31/17 00:37 Colon Fluid Yersinia Culture - Preliminary NO ENTERIC PATHOGENS, 24 HOURS, ON PRIMARY PLATES 01/31/17 00:37 Colon Fluid Vibrio Culture - Preliminary NO ENTERIC PATHOGENS, 24 HOURS, ON PRIMARY PLATES 01/31/17 00:37 Colon Fluid Escherichia coli 0157 Culture - Preliminary NO ENTERIC PATHOGENS, 24 HOURS, ON PRIMARY PLATES 01/30/17 16:33 Urine - Urine Clean Catch Urine Culture - Final NO GROWTH OBTAINED 01/31/17 00:37 Stool Clostridium difficile Antigen (GABE) - Final 01/31/17 00:37 Stool Clostridium difficile Toxin Assay - Final A/p 21 yo F with no PMHx presented to the hospital with abdominal pain, fevers and bloody diarrhea 1. Sepsis due to pancolitis- afebrile 24H. clinical improvement. stool Cx with pending organism. Report from previous hospitalization showing same zavala-colitis with campylobacter which was never treated. presumed to be similar infection. considering it is with how improved pt is with only 48H of abx. will ultimately require colonoscopy but can be deferred if infectious. d/c IVF. cont Levaquin and Flagyl day 3. ESR/CRP slightly elevated can be infectious as well. GI consulted. pain and nausea control. 2. Hypokalemia- resolved 3. Acute normocytic anemia- ted ceballosal. has not started menses yet. no reports of bleeding. trend Hgb. check iron studies 4. DVT ppx- lovenox 5. spoke to pt with father present at bedside. explained current plan. pt verbalized desire to go home and follow up as outpatient. encouraged pt to stay in the hospital due to undetermined results of Cx and lack of follow up previous visit. informed her of risks/benefits of staying. will need to be AMA if she decides to leave. currently agrees to stay. Visit type - Emergency Visit Emergency Visit: Yes ED Registration Date: 01/30/17 Care time: The patient presented to the Emergency Department on the above date and was hospitalized for further evaluation of their emergent condition. - New Patient This patient is new to me today: No - Critical Care Critical Care patient: No - Discharge Referral Referred to [facility] Med P.C.: No
[2017-02-01] MEDS ORDERED: NAPH,MB-DB/K PH,MBDB POWDER PACKET PO ONE (13:00)
--- NOTE | 2017-02-01 15:07 | PN ---
GI Progress Note Subjective: GASTROENTEROLOGY ONE LOOSE BM TODAY, STATES NO ABDOMINAL PAIN, WANTS TO GO HOME, MICRO + FOR ORGANISM IN STOOL CULTURE ID IS PENDING NO FEVER - Objective Vital Signs: Vital Signs Temperature 98.3 F 02/01/17 10:00 Pulse Rate 79 02/01/17 10:00 Respiratory Rate 20 02/01/17 10:00 Blood Pressure 103/52 02/01/17 10:00 O2 Sat by Pulse Oximetry (%) 98 02/01/17 09:00 Constitutional: Well Nourished Eyes: Yes: Conjunctiva Clear HENT: Yes: Atraumatic Neck: Yes: Supple Cardiovascular: Yes: Regular Rate and Rhythm Respiratory: Yes: Regular Gastrointestinal Inspection: Yes: WNL ...Auscultate: Yes: Normoactive Bowel Sounds ...Palpate: Yes: Soft Extremities: Yes: WNL Neurological: Yes: WNL Labs: CBC, BMP 02/01/17 06:15 02/01/17 06:15 Problem List - Problems (1) Bloody diarrhea Assessment/Plan: CONTINUE CURRENT RX BUT ADVANCE TO BRAT DIET AND LOW RESIDUAL DIET IN AM CAN NOT AGREE WITH PATIENT'S REQUEST TO GO HOME: AWAIT STOOL ID OF ORGANISM D/C OXYCODONE D/C IV ACETAMINOPHEN CONTINUE BENTYL DEB LEON MD Code(s): R19.7 - DIARRHEA, UNSPECIFIED (2) Colitis Code(s): K52.9 - NONINFECTIVE GASTROENTERITIS AND COLITIS, UNSPECIFIED (3) Fever Code(s): R50.9 - FEVER, UNSPECIFIED Qualifiers: Fever type: unspecified Qualified Code(s): R50.9 - Fever, unspecified (4) Abdominal pain Code(s): R10.9 - UNSPECIFIED ABDOMINAL PAIN
[2017-02-01] MEDS ORDERED: ACETAMINOPHEN 325 MG TABLET (FP) PO ONE (20:39)
[2017-02-02] MEDS: METRONIDAZOLE PREMIXED IVPB 50 ML IVPB SCH ×2 (01:45→10:09)
[2017-02-02 09:31] LABS: MCH 27.5 pg (25.7-33.7); MCHC 34.6 g/dl (32.0-36.0); MEAN CELL VOLUME 79.4 fl (80-96); MEAN PLT VOLUME 7.4 fl (7.5-11.1); PLATELET COUNT 246 K/MM3 (134-434); RDW 13.7 % (11.6-15.6); WHITE BLOOD COUNT 6.9 K/mm3 (4.0-10.0)
[2017-02-02 09:59] LABS: ANION GAP 13 (8-16); CALCIUM 8.9 mg/dL (8.5-10.1); CO2 20 mmol/L (21-32); CREATININE 0.5 mg/dL (0.55-1.02); GLUCOSE,RANDOM 72 mg/dL (74-106); PHOSPHOROUS 2.3 mg/dL (2.5-4.9)
[2017-02-02] MEDS: FLUoxetine HCL 20 MG CAPSULE (FP) PO SCH (10:09)
[2017-02-02] MEDS: LEVOFLOXACIN 500 MG IVPB 100 ML IVPB SCH (11:02)
--- NOTE | 2017-02-02 14:43 | PN ---
Teaching Attending Note Name of Resident: Dileep Marino ATTENDING PHYSICIAN STATEMENT I saw and evaluated the patient. I reviewed the resident's note and discussed the case with the resident. I agree with the resident's findings and plan as documented. SUBJECTIVE:asymptomatic. states she no longer has cramping. tolerated breakfast. had 1 loose BM yesterday that was non-bloody. denies CP, SOB, fever, chiills, N/V/C OBJECTIVE: Last Vital Signs Temp Pulse Resp BP Pulse Ox 99.4 F 74 18 102/55 98 02/02/17 08:45 02/02/17 08:45 02/02/17 08:45 02/02/17 08:45 02/01/17 09:00 General NAD Abdomen soft NT/ND no rebound or guarding ASSESSMENT AND PLAN: 21 yo F with no PMHx presented to the hospital with abdominal pain, fevers and bloody diarrhea 1. Sepsis due to pancolitis- afebrile >72H. clinical improvement. stool Cx + salmonella. negative for campylobacter. symptoms resolved. low residue diet. will ultimately require colonoscopy in several weeks to r/o other causes. cont levaquin 7 day course. 2. Hypokalemia- resolved 3. Acute normocytic anemia- likley dilutional. Hgb stable. 4. DVT ppx- lovenox 5. spoke to pt with father present at bedside. verbalized understanding and agreement with plan. stressed importance of medication compliance and follow up.
[2017-02-02 14:54] VITALS: BP 118/64; PULSE 102; TEMP 98.6
--- NOTE | 2017-02-02 22:27 | DS ---
Physical Exam: SUBJECTIVE: Patient seen and examined at bedside. She feels better today and is eager to go home. No vomiting overnight. She had one episode of diarrhea this morning, but states that it is more formed today. OBJECTIVE: Vital Signs Period Temp Pulse Resp BP Sys/Carlos Pulse Ox Last 24 Hr 97.8 F-99.4 F 65-102 18-18 95-118/51-64 98 PHYSICAL EXAM GENERAL: The patient is awake, alert, and fully oriented, in no acute distress. HEAD: Normal with no signs of trauma. EYES: extraocular movements intact, sclera anicteric, conjunctiva clear. NECK: Trachea midline, full range of motion, supple. LUNGS: Breath sounds equal, clear to auscultation bilaterally, no wheezes, no crackles, no accessory muscle use. HEART: Regular rate and rhythm, S1, S2 without murmur, rub or gallop. ABDOMEN: Soft, nontender, nondistended, normoactive bowel sounds, no guarding, no rebound. EXTREMITIES: 2+ pulses, warm, well-perfused, no edema. NEUROLOGICAL: Cranial nerves II through X grossly intact. Normal speech, gait not observed. PSYCH: Normal mood, normal affect. SKIN: Warm, dry, normal turgor, no rashes or lesions noted. LABS Laboratory Results - last 24 hr 02/02/17 02/02/17 08:00 08:00 WBC 6.9 RBC 4.46 Hgb 12.3 D Hct 35.4 MCV 79.4 L MCH 27.5 MCHC 34.6 RDW 13.7 Plt Count 246 D MPV 7.4 L Sodium 139 Potassium 3.5 Chloride 106 Carbon Dioxide 20 L D Anion Gap 13 BUN 6 L Creatinine 0.5 L Random Glucose 72 L D Calcium 8.9 Phosphorus 2.3 L D Magnesium 2.0 HOSPITAL COURSE: Date of Admission:01/30/17 The patient is a 21 yo f w/ no PMH who presented to the ED c/o abdominal pain, nausea, vomiting and diarrhea for 2 days. The patient stated that she has had pain in her abdomen on and off with and without diarrhea and vomiting for the past 5 years and is now having a similar episode. The patient complained of a cramping, 7/10 pain over the whole abdomen which radiated to the epigastrium and alternated with a sharp, 10/10 abdominal pain. The pain was exacerbated by sitting up and alleviated by laying on her side. The pain was associated with NBNB emesis which occurs when she eats something or sits up in bed. She also complained of several episodes of watery diarrhea. The patient's symptoms began to be associated with fever to 102 and chills 1 day prior to admission. The patient also complained of bilateral shoulder and knee pain which she was told is bursitis. The patient was previously hospitalized with abdominal pain and had a CT of the abdomen which showed abnormalities of the GI tract. In the ED, she was found to have a fever to 102.3 and a heart rate to 101. A CT abdomen and pelvis showed acute colitis without appendicitis. Stool for c. Diff, ova and parasites, a stool culture and a urine culture were sent. The patient was admitted for the treatment of acute colitis secondary to infectious etiology vs IBD. She was treated with morphine, IV hydration, tylenol, levaquin and flagyl. Dr. Meek from gastroenterology was consulted. EUSEBIO, p-ANCA, myeloperoxidase antibody, c-ANCA, Protienase 3 and atypical p-ANCA titers were all drawn. Stool for c.diff was negative. Stool cultures were positive for salmonella. Patient clinically improved. She was afebrile for 24 hours. Her nausea and vomiting resolved and her Diarrhea was improving. Approximately 40 minutes prior to her scheduled discharge, the patient signed out AMA. Calls were placed to the patient and her mother in an effort to relay discharge instructions without answer. Discharge instructions were mailed to the patient's address on file. Patient's discharge medications were sent to the pharmacy on record. Date of Discharge: 02/02/17 Minutes to complete discharge: 30 Discharge Summary Reason For Visit: COLITIS Condition: Improved - Instructions Diet, Activity, Other Instructions: Please resume regular activities as tolerated. we are sending you home on an antibiotic called levaquin. You should take 500 mg of this antibiotic every day for another 4 days. Please take the rest of your antibiotics for the full 4 days , even if you feel better. Continue to follow a low residue diet, information have been provided. You should also follow up with Dr. Meek or a paper stacker of your choice within one week to schedule your colonoscopy. You should also follow up with you primary care doctor within one week of going home. If you begin to feel fever, chills, shortness of breath or if any of your symptoms get worse, please call your doctor or return to the emergency room. Referrals: Peri Rtaliff MD [Primary Care Provider] - Julito Meek MD [Staff Physician] - Disposition: AGAINST MEDICAL ADVICE - Home Medications Comprehensive Discharge Medication List: Ambulatory Orders Fluoxetine HCl [Prozac] 40 mg PO DAILY 01/30/17 Non-Formulary 0 mg PO ASDIR 01/30/17 Levofloxacin [Levaquin -] 500 mg PO DAILY #4 tablet 02/02/17 Problem List - Problems (1) Colitis Code(s): K52.9 - NONINFECTIVE GASTROENTERITIS AND COLITIS, UNSPECIFIED (2) Fever Code(s): R50.9 - FEVER, UNSPECIFIED Qualifiers: Fever type: unspecified Qualified Code(s): R50.9 - Fever, unspecified (3) Abdominal pain Code(s): R10.9 - UNSPECIFIED ABDOMINAL PAIN This patient is new to me today: No Emergency Visit: Yes ED Registration Date: 01/30/17 Care time: The patient presented to the Emergency Department on the above date and was hospitalized for further evaluation of their emergent condition. Critical Care patient: No - Discharge Referral Referred to [facility] Med P.C.: No
[2017-02-03 16:23] LABS: C-ANCA <1:20 titer (Neg:<1:20); MYELOPEROXIDASE ANTIBODY <9.0 U/mL (0.0-9.0); P-ANCA <1:20 titer (Neg:<1:20); PROTEINASE-3 ANTIBODY <3.5 U/mL (0.0-3.5)
[2017-02-04 14:16] LABS: CHLAM.TRACHOMATIS NAA Negative (Negative); GONOCOCCUS NAA Negative (Negative); TRICH VAG NAA Negative (Negative)
== END 2017-02-02 15:21 | disposition left against medical advice (07) | DRG 392 ==
LOC: JER 16:06 → JERBED 21:33 → J5S 01-31 00:59
PROVIDERS: ADMIT Internal Medicine; ATTEND Internal Medicine
DX: K52.9 Noninfective gastroenteritis and colitis, unspecified (principal); R50.9 Fever, unspecified; E87.6 Hypokalemia; R00.0 Tachycardia, unspecified; E83.39 Other disorders of phosphorus metabolism; D64.9 Anemia, unspecified
CPT/HCPCS: 36415; 74177-TC; 76830-TC; 80048; 80053; 81003; 83520; 83690; 83735; 83993; 84100; 84703; 85025; 85027; 85651; 86038; 86140; 86256; 87045; 87046; 87086; 87177; 87186; 87205; 87209; 87324; 87449; 87491; 87591; 87661; 99283-25